=== PATIENT | female | born 1965 | race Caucasian/White ===

== ENCOUNTER 2017-05-21 17:09 | Inpatient (IN) | payer OTHER ==
[~2017-05-21] VITALS: Ht 162.6 cm; Wt 81.6 kg
[2017-05-21] MEDS ORDERED: DICYCLOMINE HCL 20 MG TABLET PO PRN (20:30)
[2017-05-21] MEDS ORDERED: MIRALAX 17 GM POWD.PACK PO PRN (20:30)
[2017-05-21] MEDS ORDERED: MAGNESIUM HYDROXIDE 30 ML LIQUID UDC PO PRN (20:30)
[2017-05-21] MEDS ORDERED: LOPERAMIDE HCL 2 MG CAPSULE PO PRN ×2 (20:30)
[2017-05-21] MEDS ORDERED: LORAZEPAM 2 MG/1 ML VIAL IM PRN (20:30)
[2017-05-21] MEDS ORDERED: MAG HYDROX/AL HYDROX/SIMETH 30 ML LIQUID UDC PO PRN (20:30)
[2017-05-21] MEDS ORDERED: THIAMINE HCL 200 MG/2 ML VIAL IM ONE (20:30)
[2017-05-21] MEDS ORDERED: LORAZEPAM 1 MG TABLET PO PRN (20:30)
[2017-05-21] MEDS ORDERED: CALCIUM CARBONATE 500 MG TAB.CHEW PO PRN (20:30)
--- NOTE | 2017-05-21 20:36 | NUR ---
Pre-admission assessment Patient is a 51-year old, male, seen at intake, AAOx4, with anxiety noted. Patient appears flushed, disheveled and emotional. Patient is crying and expressing feelings of guilt and remorse. Discussed with patient admission policies of the unit. Patient is coherent and able to respond to questions appropriately. Patient reported that she is from [place] and was dropped off by her son. Pt is ambulatory with steady gait. Pt reports drinking Tequila 375 ml every night for the past 5 years. Last drink was 05/20/2017 around 10 pm. Patient also reports smoking Cannabis "a couple of puffs with a pipe" daily x 30 years. Last smoke was today in the afternoon. Vital signs taken and as follows: SR=868/93, P=106, O2 sat on RA=97%, RR=20, T=98.3. Pt verbalized instructions and teachings regarding disposal of narcotic and other controlled home meds, unit protocols such as taking of vital signs Q4H and handling and disposal of contraband.
--- NOTE | 2017-05-21 21:00 | NUR ---
Admission Notes Px is 51 y/o female who is being admitted for medically supervised withdrawal from ETOH. Px is currently experiencing mild to moderate withdrawal sxs. Px appears clean. Px is anxious and depressed. Px was crying during interview. Px is A&Ox4. Px has good eye contact. Px states that she is irritable, has problems sleeping, and easily angered if she is not drinking. Px denies hx of withdrawal-induced seizure. Px states current substance use as follows: 1. ETOH- Tequila 375 ml daily for 5 years. Px last drink was last night 05/20/2017. Px began drinking 25 years ago. 2. Marijuana- few puffs daily in pipe for 30 years Px states that she is seeking tx today because her drinking is already affecting her family especially her . Px verbalized "Drinking turned myself to a person that is not me. I had a fight with my last night. I don't want a divorce". Px is first time in detox. Px stated that she had not drink for a day but on the next day, she will drink again. Px has no solid period of sobriety. CIWA 13 at the moment. Px states "I really need a treatment, I need to stop drinking. Last night, I had a fight with my . I just want to live a normal life". Px stated "My is my support system". Px denies any suicidal ideation or homicidal ideation hx. VS are as follow BP= 135/95, TX= 102, O2sat= 97%, RR=18. No pain complaints at the moment. respirations are even and unlabored. Lung whelan are clear. Bowel sounds are active. Skin is intact. Px is following regular diet at home. Px has allergies on Codeine. Px stands 5'4" and weighs 180 lbs. Px smokes 1 pack of cigarettes daily. Px wishes to be in FULL [facility]. Px's primary doctor is Dr. De Souza. Px PMHx includes SC 7 years ago due to menorrhagia as stated. Gall bladder surgical removal, total hysterectomy, anxiety and depression. Px was educated about the plan of care including, detox, group therapy, individual therapy, and D/C.
[2017-05-21 21:03] LABS: BASOPHILS # (AUTO) 0.1 K/uL (0.0-8.0); BASOPHILS % (AUTO) 0.9 % (0.0-2.0); EOSINOPHILS # (AUTO) 0.1 K/uL (0.0-0.7); EOSINOPHILS % (AUTO) 0.5 % (0.0-7.0); ETHANOL < 3 MG/DL (0-0); HEMATOCRIT 44.4 % (31.2-41.9); HEMOGLOBIN 15.1 g/dL (10.9-14.3); LYMPHOCYTES % (AUTO) 22.4 % (20.5-51.5); MEAN CORPUSCULAR HEMOGLOBIN 34.2 uug (24.7-32.8); MEAN CORPUSCULAR HGB CONC 34 g/dL (32.3-35.6); MEAN CORPUSCULAR VOLUME 100.4 fL (75.5-95.3); MONOCYTES # (AUTO) 1.1 K/uL (2.0-10.0); MONOCYTES % (AUTO) 8.3 % (0.0-11.0); NEUTROPHILS # (AUTO) 9.1 K/uL (1.8-8.9); NEUTROPHILS % (AUTO) 67.9 % (38.5-71.5); PLATELET COUNT (AUTO) 382 K/uL (179-408); RED BLOOD CELL COUNT(AUTO) 4.42 MIL/uL (3.63-4.92); WHITE BLOOD COUNT (AUTO) 13.4 K/uL (3.8-11.8)
[2017-05-21 21:07] LABS: ALANINE AMINOTRANSFERASE 91 U/L (14-59); ALKALINE PHOSPHATASE 112 U/L (50-136); AMYLASE 25 U/L (25-115); ASPARTATE AMINOTRANSFERASE 43 U/L (15-37); BILIRUBIN,TOTAL 0.8 mg/dL (0.2-1.0); CARBON DIOXIDE 25 mmol/L (21-32); CHLORIDE 100 mmol/L (98-107); CREATININE 0.9 mg/dL (0.6-1.3); GLUCOSE 176 mg/dL (74-106); MAGNESIUM 1.7 mg/dL (1.8-2.4); POTASSIUM 3.9 mmol/L (3.5-5.1); TOTAL PROTEIN, SERUM 8.5 g/dL (6.4-8.2); UREA NITROGEN, BLOOD 13 mg/dL (7-18)
[2017-05-21 21:09] LABS: *URINE HCG, QUAL NEGATIVE (NEGATIVE)
[2017-05-21 21:16] LABS: *AMPHETAMINE, URINE NEGATIVE (NEGATIVE); *BARBITURATE, URINE NEGATIVE (NEGATIVE); *CANNABINOID, URINE POSITIVE (NEGATIVE); *COCCAINE, URINE NEGATIVE (NEGATIVE); *OPIATE, URINE NEGATIVE (NEGATIVE); *PHENCYCLIDINE SCREEN,URINE NEGATIVE (NEGATIVE)
[2017-05-21 21:17] LABS: THYROID STIMULATING HORMONE 1.808 mIU/mL (0.358-3.740)
[2017-05-21] MEDS: LORAZEPAM 1 MG TABLET PO PRN (21:50)
--- NOTE | 2017-05-21 21:50 | NUR ---
PRN meds Px was given Ativan 1 mg/tab, 2 tabs PO for CIWA 13. TUMS chew 500 mg given PO for upset stomach and Zofran 4 mg/tab, 1 tab SL for nausea. We'll continue to monitor.
[2017-05-21] MEDS: ONDANSETRON ODT 4 MG TAB.RAPDIS SL PRN (21:53)
--- NOTE | 2017-05-21 22:30 | NUR ---
Reassessment of Nausea Px stated that her nausea improved after 30 mins of taking Zofran 4 mg SL.
--- NOTE | 2017-05-21 22:50 | NUR ---
Reassessment of stomach upset Px stated that her stomach upset improved after 1 hour of taking TUMS chew tab 500 mg.
[2017-05-22] VITALS: BP 119/77
[2017-05-22 04:00] VITALS: BP 121/76
--- NOTE | 2017-05-22 07:21 | NUR ---
End of Shift Nurse During the shift at 2150, Px received Ativan 2 mg PO for CIWA 13, TUMS chew 500 mg for stomach upset and Zofran 4 mg SL for nausea. They were effective. Px's CIWA improved to 9. Nausea and stomach upset improved. px's oral intake is 850 ml, voided 2x, No BM. Px slept for 7 hours. At 0630, px is awake on bed in long sitting position. Bed on lowest position, side rails up 2x, and call light within reach. We'll continue to monitor. Px endorsed to AM shift nurse.
[2017-05-22 08:00] VITALS: BP 132/92
--- NOTE | 2017-05-22 08:15 | NUR ---
START OF SHIFT: RECEIVED PT A/O X 4. FLUSHED FACE AND POOR EYE CONTACT NOTED. SHE PRESENTS WITH ANXIOUS MOOD AND CONGRUENT AFFECT. SHE IS TEARFUL.BODY AND HAND TREMORS NOTED. SHE REPORTS FEELING SHAKY ALL OVER WITH ANXIETY ,MILD NAUSEA , SWEATS,IRRITABILITY AND SENSITIVITY TO LIGHT AND SOUND. ATIVAN TAPER IN PROGRESS TO MANAGE S/S OF W/D. ROSELINE Gayle MD MADE AWARE. ENCOUREAGED INCREASED FLUIDS AND REST TODAY. PPD REFUSED. WILL CONTINUE TO MONITOR AND MANAGE S/S OF W/D. Addendum: 05/22/17 at 1114 by ALMAS POLO RN PRN ATIVAN 2 MG PO GIVEN FOR ROSELINE 18 MADE AWARE OF SCORE
[2017-05-22] MEDS: FOLIC ACID 1 MG TABLET PO SCH (08:54)
[2017-05-22] MEDS: LORAZEPAM 1 MG TABLET PO SCH ×4 (08:54→21:00)
[2017-05-22] MEDS: THIAMINE HCL 100 MG TABLET PO SCH (08:54)
[2017-05-22] MEDS: LORAZEPAM 1 MG TABLET PO PRN ×2 (08:54→10:52)
[2017-05-22] MEDS: MULTIVITAMINS,THERAPEUTIC TABLET PO SCH (08:54)
[2017-05-22] MEDS ORDERED: TUBERCULIN,PURIF.PROT.DERIV. 5 TU/0.1 ML TEST ID ONE (09:00)
--- NOTE | 2017-05-22 09:15 | NUR ---
CIWA NOW 16. ATIVAN PA ONLY MILDLY EFFECTIVE.
[2017-05-22] MEDS ORDERED: MICO45CR15 VG (10:24)
[2017-05-22] MEDS ORDERED: OMEP20CA10 PO (10:24)
[2017-05-22] MEDS ORDERED: VARE1TAB21 PO (10:24)
--- NOTE | 2017-05-22 10:50 | NUR ---
PRN ATIVAN 2 MG PO GIVEN FOR CIWA 21. SHE REPORTS NAUSEA,STOMACH UPSET,SHAKES,IRRITABILITY,DEPRESSION AND SADNESS. SHE IS SOBBING AND STATES SHE FEELS HORRIBLE. MADE AWARE. WILL MONITOR EFFECTIVENESS.
[2017-05-22] MEDS: ONDANSETRON ODT 4 MG TAB.RAPDIS SL PRN (10:53)
--- NOTE | 2017-05-22 10:55 | NUR ---
PRN BENTYL PO AND ZOFRAN ODT ALSO GIVEN FOR REPORTED STOMACH UPSET AND NAUSEA.
[2017-05-22] MEDS ORDERED: NICOTINE 14 MG/24HR PATCH TD PRN (11:00)
[2017-05-22] MEDS ORDERED: NICOTINE POLACRILEX 4 MG GUM-PK OF TEN BC PRN (11:00)
[2017-05-22] MEDS ORDERED: MAGNESIUM OXIDE 400 MG TABLET PO ONE (11:00)
--- NOTE | 2017-05-22 11:50 | NUR ---
PRN BENTYL AND PRN ZOFRAN EFFECTIVE. PT STATES HER NAUSEA IS GONE AND STOMACH FEELS BETTER.
[2017-05-22 12:00] VITALS: BP 127/98
[2017-05-22] MEDS: OMEPRAZOLE 20 MG PO SCH (12:07)
[2017-05-22] MEDS: IBUPROFEN 400 MG TABLET PO PRN (13:13)
--- NOTE | 2017-05-22 13:15 | NUR ---
PRN MOTRIN PO GIVEN FOR REPORTED H/A 8/10 ON PAIN SCALE. WILL MONITOR EFFECTIVENESS. PT CONTINUES ON BED REST AND INCREASED FLUIDS ENCOURAGED.
--- NOTE | 2017-05-22 14:15 | NUR ---
PT STATES H/A IS 2/10. MOTRIN MOSTLY EFFECTIVE.
[2017-05-22 16:00] VITALS: BP 134/88
--- NOTE | 2017-05-22 18:49 | NUR ---
END OF SHIFT: PT STARTED ATIVAN TAPER TODAY FOR ETOH W/D. SHE WAS FLUSHED THIS AM WITH BODY AND HAND TREMORS ,SWEATS, ANXIETY,DEPRESSION AND RESTLESSNESS. MORNING CIWA 18. SHE WAS GIVEN PRN ATIVAN X 2. WHICH WAS EFFECTIVE. SHE WAS ALSO GIVEN PRN BENTYL AND PRN ZOFRAN ALONG WITH PRN MOTRIN FOR H/A. LAST CIWA 12.SHE WAS COMPLIANT WITH INCREASED FLUIDS AND BED REST. SHE REFUSED PPD. BED LOW AND LOCKED. CALL MIRANDA IN REACH. SHE IS TOLERATING FOOD AND EATING 50 % OF MEALS. WILL PASS SHIFT REPORT TO ONCOMING NIGHT NURSE.
--- NOTE | 2017-05-22 19:20 | NUR ---
Start of Shift Patient Received. Patient is noted in bed sleeping. Breathing even and non labored. Per endorsement, Patient continues on a modified Ativan taper. Per endorsement, patient was given PRN Ativan 2mg x2, Zofran, Bentyl, and Motrin for increased signs and symptoms of withdrawal with medications noted to be effective. Patient noted to refused PPD with MD aware. Last noted CIWA 12. All needs attended to promptly. Will continue plan of care as ordered.
--- NOTE | 2017-05-22 20:30 | NUR ---
CIWA Deferred Patient is in bed sleeping. Breathing even and non labored. No restlessness or discomfort noted. Patient is arousable to name. When asked patient if she wanted her medications patient "no I'm fine." Patient then noted to go back to sleep with no complications noted. Unable to complete CIWA. Will continue to monitor.
[2017-05-22 21:01] VITALS: BP 120/73
[2017-05-23 00:30] VITALS: BP 132/87
[2017-05-23 04:15] VITALS: BP 131/85
[2017-05-23] MEDS: OMEPRAZOLE 20 MG PO SCH (06:27)
--- NOTE | 2017-05-23 07:02 | NUR ---
End of Shift Patient is in room, awake, alert and verbally responsive. Breathing even and non labored. Patient is noted to shower with no complications noted. Patient continues on a modified Ativan taper. Patient was noted to sleep through medication administration. No PRN medications administered throughout shift. Patient slept a total of 9 hours. Last noted CIWA 5 at 0500 when patient went out for smoking break. All needs attended to promptly. Will endorse to continue plan of care as ordered.
[2017-05-23 08:00] VITALS: BP 136/94
--- NOTE | 2017-05-23 08:20 | NUR ---
START OF SHIFT: RECEIVED PT A/O X 4. SHE PRESENTS WITH SAD MOOD AND WORRIED AFFECT. SHE IS CRYING.BODY AND HAND TREMORS NOTED. SHE REPORTS FEELING ANXIETY ,MILD NAUSEA , SWEATS, IRRITABILITY AND DEPRESSION.ATIVAN TAPER IN PROGRESS TO MANAGE S/S OF W/D. CIWA 23. PT STARTED VOMITING IMMEDIATELY AFTER MED ADMINISTRATION. PRN ZOFRAN IM ADMINISTERED TO L DELTOID MD MADE AWARE. WILL MONITOR EFFECTIVENESS OF ZOFRAN PRIOR TO ADMINISTERING THE PRN DOSE OF ATIVAN TO REDUCE S/S OF W/D. SHE ALSO REPORTS H/A 8/10 ON PAIN SCALE. WILL ADMINISTER PRN TYLENOL FOR H/A WILL CONTINUE TO MONITOR AND MANAGE S/S OF W/D. ENCOURAGED REST TODAY. WILL CONTINUE TO MANAGE S/S OF W/D AND PROVIDE SAFE AND SUPPORTIVE ENVIRONMENT.
[2017-05-23] MEDS: FOLIC ACID 1 MG TABLET PO SCH (08:38)
[2017-05-23] MEDS: IBUPROFEN 400 MG TABLET PO PRN ×2 (08:38→20:40)
[2017-05-23] MEDS: LORAZEPAM 1 MG TABLET PO SCH ×3 (08:38→20:40)
[2017-05-23] MEDS: MULTIVITAMINS,THERAPEUTIC TABLET PO SCH (08:38)
[2017-05-23] MEDS: THIAMINE HCL 100 MG TABLET PO SCH (08:38)
[2017-05-23] MEDS: ONDANSETRON 4 MG/2 ML VIAL IM PRN (08:47)
[2017-05-23] MEDS ORDERED: LORAZEPAM 1 MG TABLET PO ONE (10:15)
[2017-05-23] MEDS: ACETAMINOPHEN 325 MG TABLET PO PRN (10:16)
[2017-05-23 10:39] LABS: BASOPHILS # (AUTO) 0.1 K/uL (0.0-8.0); EOSINOPHILS # (AUTO) 0.1 K/uL (0.0-0.7); EOSINOPHILS % (AUTO) 1.4 % (0.0-7.0); HEMOGLOBIN 13.5 g/dL (10.9-14.3); LYMPHOCYTES # (AUTO) 2.7 K/uL (20.0-40.0); LYMPHOCYTES % (AUTO) 25.7 % (20.5-51.5); MEAN CORPUSCULAR HEMOGLOBIN 34.3 uug (24.7-32.8); MEAN CORPUSCULAR HGB CONC 34 g/dL (32.3-35.6); MEAN CORPUSCULAR VOLUME 101.3 fL (75.5-95.3); MONOCYTES % (AUTO) 9.3 % (0.0-11.0); NEUTROPHILS # (AUTO) 6.5 K/uL (1.8-8.9); NEUTROPHILS % (AUTO) 62.6 % (38.5-71.5); PLATELET COUNT (AUTO) 303 K/uL (179-408); RED BLOOD CELL COUNT(AUTO) 3.93 MIL/uL (3.63-4.92); WHITE BLOOD COUNT (AUTO) 10.5 K/uL (3.8-11.8)
[2017-05-23 10:54] LABS: HEMATOCRIT 39.8 % (31.2-41.9)
[2017-05-23 11:11] LABS: BILIRUBIN,DIRECT 0.1 mg/dL (0.0-0.2); BILIRUBIN,TOTAL 0.2 mg/dL (0.2-1.0); CREATININE 0.9 mg/dL (0.6-1.3); MAGNESIUM 1.7 mg/dL (1.8-2.4); PHOSPHOROUS 3.5 mg/dL (2.5-4.9); TOTAL PROTEIN, SERUM 7.1 g/dL (6.4-8.2)
[2017-05-23] MEDS ORDERED: IV 1/2NS 1000 ML 1,000 ML IV PRN (11:45)
[2017-05-23] MEDS ORDERED: LORAZEPAM 1 MG TABLET PO PRN ×2 (11:45)
[2017-05-23 12:00] VITALS: BP 112/74
[2017-05-23] MEDS ORDERED: MAGNESIUM OXIDE 400 MG TABLET PO ONE (12:00)
[2017-05-23] MEDS ORDERED: PANTOPRAZOLE SODIUM 40 MG VIAL IV ONE (12:00)
[2017-05-23 12:26] LABS: HEPATITIS B SURFACE AG Negative (Negative)
--- NOTE | 2017-05-23 12:44 | NUR ---
1/2 NS IV STARTED. 22 G TO R FA. SITE PATENT AND INTACT. ORDERED 1 BAG FOR HYDRATION. WILL CONTINUE TO MONITOR.
--- NOTE | 2017-05-23 15:58 | NUR ---
PT ACCIDENTLY PULLED IV OUT. MD STATES RESUME IV FLUIDS IF POOR ORAL INTAKE.
[2017-05-23 16:00] VITALS: BP 126/86
--- NOTE | 2017-05-23 18:58 | NUR ---
END OF SHIFT: PT CONTINUES ON ATIVAN TAPER FOR ETOH W/D WHICH INCLUDE TREMORS ,SWEATS, ANXIETY,DEPRESSION AND RESTLESSNESS. MORNING CIWA 23. SHE IS DISHEVELED WITH POOR HYGIENE. SHE STARTED VOMITING IMMEDIATELY AFTER AM MED ADMINISTRATION. IM ZOFRAN PRN GIVEN AND EFFECTIVE. READMINISTERED ATIVAN. PRN TYLENOL GIVEN FOR H/A 8/10 ON SCALE WHICH WAS EFFECTIVE. PAIN 3/10 LAST CIWA 15 . IV STARTED TO R FA BUT PT ACCIDENTLY PULLED IT OUT AFTER A COUPLE OF HOURS. MD STATES TO RESUME IV FLUIDS FOR POOR INTAKE. PT ON BEDREST TODAY. BED LOW AND LOCKED. CALL MIRANDA IN REACH. SHE IS TOLERATING FOOD AND EATING 50 % OF MEALS AT THIS TIME. WILL PASS SHIFT REPORT TO ONCOMING NIGHT NURSE.
--- NOTE | 2017-05-23 19:30 | NUR ---
START OF SHIFT Pt is a 51 y/o female admitted on 05/21/17 for ETOH withdrawal. Pt is on a 5 day Ativan taper that started on 05/22/17 and PRN Ativan available, tolerating taper well. Per day shift nurse, last CIWA 15 and PRN Zofran inj and Tylenol administered. Pt has IVF started during day shift, IV accidentally got pulled out a few hours after, to re reinserted if pt has poor intake. Upon assessment pt presents with anxiety, agitation, irritability, sweats, nausea without vomiting, tremors, headache, flushed skin, restlessness, difficulty falling asleep, flat affect, increased BP and HR, unkempt room and is tearful. Pt has not had an episode of vomiting since the morning. Pt able to tolerate fluids.
[2017-05-23 20:00] VITALS: BP_SYST 139; BP_SYST 150; BP_DIAS 88
[2017-05-23] MEDS: diphenhydrAMINE 50 MG CAPSULE PO PRN (20:40)
[2017-05-23] MEDS: ONDANSETRON ODT 4 MG TAB.RAPDIS SL PRN (20:40)
--- NOTE | 2017-05-23 20:40 | NUR ---
PRN ZOFRAN ODT, MOTRIN AND BENADRYL ADMINISTRATION Pt reports nausea without vomiting, headache 5/10 and requests sleep aid. Safety measures in place. Call light within reach. Will continue to monitor.
--- NOTE | 2017-05-23 21:10 | NUR ---
RICK العلي ODT REASSESSMENT Pt reports nausea has ceased, medication effective. Safety measures in place. Call light within reach. Will continue to monitor.
--- NOTE | 2017-05-23 21:40 | NUR ---
PRN MOTRIN AND BENADRYL REASSESSMENT Pt reports headache is now tolerable, still awake but presents with fatigue. Safety measures in place. Call light within reach. Will continue to monitor.
--- NOTE | 2017-05-24 | NUR ---
CIWA DEFERRED AND VITALS REFUSED. Pt laying in bed with eyes closed, CIWA deferred, to be assessed when pt is awake per orders. Vitals refused. Respirations even and unlabored. Safety measures in place. Call light within reach. Will continue to monitor.
--- NOTE | 2017-05-24 04:00 | NUR ---
CIWA DEFERRED AND VITALS REFUSED Pt laying in bed with eyes closed, CIWA deferred, to be assessed when pt is awake per orders. Vitals refused. Respirations even and unlabored. Safety measures in place. Call light within reach. Will continue to monitor.
[2017-05-24 06:47] LABS: BILIRUBIN,DIRECT 0.1 mg/dL (0.0-0.2); BILIRUBIN,TOTAL 0.3 mg/dL (0.2-1.0); CREATININE 0.8 mg/dL (0.6-1.3); MAGNESIUM 1.8 mg/dL (1.8-2.4); PHOSPHOROUS 4.1 mg/dL (2.5-4.9); POTASSIUM 4.6 mmol/L (3.5-5.1)
--- NOTE | 2017-05-24 07:16 | NUR ---
END OF SHIFT Pt is a 51 y/o female admitted on 05/21/17 for ETOH withdrawal. Pt is on a 5 day Ativan taper that started on 05/22/17 and PRN Ativan available, tolerating taper well. Pt presented with anxiety, agitation, irritability, sweats, nausea without vomiting, tremors, headache, flushed skin, restlessness, difficulty falling asleep, flat affect, increased BP and HR, unkempt room and was tearful. Pt able to tolerate fluids and food during shift. Scheduled medications and PRN Motrin, Zofran odt and Benadryl administered, effective in S/S of withdrawal as verbalized by pt. Last CIWA 19. Pt slept 8 hours. Intake 250 ml, void x 2, stool x 0. Safety measures in place. Call light within reach. Pts needs have been met. Endorsed to day shift nurse.
[2017-05-24] MEDS: PATIENT MAY USE OWN MED- MD OK PO SCH (07:22)
--- NOTE | 2017-05-24 07:40 | NUR ---
START OF SHIFT PT IS A 51 Y/O M ADMITTED ON 05/21/17 FOR ETOH W/D. PT IS ON A 5 DAY ATIVAN TAPER STARTED ON 05/22/17 AND TOLERATING WELL. PT IS A/OX4, RESPIRATIONS EVEN AND UNLABORED. PT PRESENTS ANXIETY, AGITATION, IRRITABILITY, RESTLESSNESS, DIAPHORESIS, FLUSHING, NAUSEA. TREMORS NOTED. LAST CIWA 19 @1999. PT APPEARS TO BE HIGHLY EMOTIONAL AND STATES, "I AM NOT DOING SO WELL." ENCOURAGED PT TO PARTICIPATE IN GROUPS/ACTIVITIES TO PROMOTE COPING SKILLS. SIDE RAILS UPX2, BED IN LOW POSITION, CALL LIGHT WITHIN REACH. SAFETY MEASURES IN PLACE. WILL CONTINUE TO MONITOR.
[2017-05-24 08:00] VITALS: BP 138/95
[2017-05-24] MEDS ORDERED: LORAZEPAM 1 MG TABLET PO SCH ×3 (09:00→21:00)
[2017-05-24] MEDS: FOLIC ACID 1 MG TABLET PO SCH (09:09)
[2017-05-24] MEDS: MULTIVITAMINS,THERAPEUTIC TABLET PO SCH (09:09)
[2017-05-24] MEDS: THIAMINE HCL 100 MG TABLET PO SCH (09:09)
[2017-05-24] MEDS: ONDANSETRON ODT 4 MG TAB.RAPDIS SL PRN (09:21)
--- NOTE | 2017-05-24 09:21 | NUR ---
PRN PT C/O NAUSEA, STATED, "I'VE BEEN FEELING SICK ALL THE TIME." ZOFRAN 4MG SL PRN GIVEN. WILL MONITOR FOR EFFECTIVENESS.
--- NOTE | 2017-05-24 10:21 | NUR ---
REASSESSMENT PT REPORTED NAUSEA HAS CEASED DUE TO ZOFRAN. WILL CONTINUE TO MONITOR.
[2017-05-24] MEDS ORDERED: MAGNESIUM OXIDE 400 MG TABLET PO ONE (10:30)
--- NOTE | 2017-05-24 10:30 | NUR ---
Therapist prompted client about group times. Client stated she would attend all groups.
[2017-05-24 12:00] VITALS: BP 120/81
[2017-05-24] MEDS: LORAZEPAM 1 MG TABLET PO SCH ×2 (12:12→17:00)
[2017-05-24 16:00] VITALS: BP 138/94
--- NOTE | 2017-05-24 19:26 | NUR ---
END OF SHIFT PT'S LAST CIWA IS 14 @1600. PT HAS BEEN HIGHLY EMOTIONAL AND AGITATED, DURING SHIFT. PT REPORTS FEELING VERY DEPRESSED AND IS FEELING REMORSE ABOUT HER ACTIONS. PT STATED WHILE CRYING, "I FEEL HORRIBLE ABOUT THE THINGS I'VE DONE TO MY . I NEED TO TALK TO HIM. I MISS HIM SO MUCH." PT AROUND 1300, PT CAME TO THE NURSING STATION AND WAS UPSET AND FRUSTRATED ABOUT WAITING SO LONG TO MAKE A PHONE CALL TO HER . PT STATED, "I AM SICK AND TIRED OF GETTING THE RUN AROUND. YOU GUYS ARE DOING THIS ON PURPOSE. WELL THEN, FUCK YOU GUYS." REDIRECTED PT AND ENCOURAGED PT TO VERBALIZED HER FEELINGS WITHOUT BEING RUDE TO STAFF. PHONE CALL WAS MADE. ZOFRAN PRN WAS GIVEN DURING SHIFT. PT ATE 100% OF MEALS. SAFETY MEASURES IN PLACE. WILL GIVE PERTINENT INFO TO BACKFILLER NURSE.
[2017-05-24 20:00] VITALS: BP 127/87
--- NOTE | 2017-05-24 20:00 | NUR ---
START OF SHIFT NOTE RECEIVED REPORT FROM DAY SHIFT NURSE. PATIENT IS A 51 YEAR OLD FEMALE ADMITTED FOR ETOH WITHDRAWAL. PATIENT IS ON HER 3RD DAY OF HER 5 DAY ATIVAN TAPER. PATIENT EMOTIONAL DURING THE DAY. PATIENT WAS GIVEN PRN ZOFRAN AND EXTRA ONE TIME ATIVAN. LAST CIWA 14. RECEIVED PATIENT IN THE ROOM. RESPIRATION EVEN AND UNLABORED. PATIENT'S ROOM DIRTY, GARBAGE AROUND ROOM, CLOTHES EVERYWHERE, SAD, ANXIOUS, FLUSHED FACE AND FATIGUE. ENCOURAGE FLUIDS. SAFETY MEASURES IN PLACE. CALL LIGHT IN REACH. WILL CONTINUE TO MONITOR
[2017-05-24] MEDS: GABAPENTIN 300 MG CAPSULE PO SCH (20:28)
[2017-05-25] VITALS: BP 137/88
--- NOTE | 2017-05-25 | NUR ---
ROSELINE DEFERRED PATIENT IN BED WITH EYES CLOSED. RESPIRATION EVEN AND UNLABORED. SAFETY MEASURES IN PLACE. CALL LIGHT IN REACH. WILL CONTINUE TO MONITOR. Addendum: 05/25/17 at 0733 by ALIVIA GRANT LVN REFUSED VS.
--- NOTE | 2017-05-25 04:00 | NUR ---
CIWA DEFERRED PATIENT IN BED WITH EYES CLOSED. REFUSED VS. RESPIRATION EVEN AND UNLABORED. SAFETY MEASURES IN PLACE. CALL LIGHT IN REACH. WILL CONTINUE TO MONITOR.
[2017-05-25] MEDS: PATIENT MAY USE OWN MED- MD OK PO SCH (06:44)
--- NOTE | 2017-05-25 07:27 | NUR ---
END OF SHIFT NOTE MONITORED THROUGHOUT SHIFT. MEDICATION GIVEN ORDERED, TOLERATED WELL AND NO ADVERSE REACTION. PATIENT IN THE ROOM MOST OF THE SHIFT, SLEEPING. PATIENT DID NOT REQUIRE ANY PRN MEDICATION. PATIENT COMPLIANT WITH MEDICATION. PATIENT SLEPT 10 HOURS. FLUID INTAKE 500 ML. VOIDED X 2.NO BM. LAST CIWA 6.
--- NOTE | 2017-05-25 07:43 | NUR ---
START OF SHIFT PT IS A 51 Y/O M ADMITTED ON 05/21/17 FOR ETOH W/D. PT IS ON A 5 DAY ATIVAN TAPER STARTED ON 05/22/17 AND TOLERATING WELL. PT IS A/OX4, RESPIRATIONS EVEN AND UNLABORED. PT PRESENTS DEPRESSION, ANXIETY, AGITATION, IRRITABILITY, RESTLESSNESS, DIAPHORESIS, FLUSHING, NAUSEA. TREMORS NOTED. LAST CIWA 6 @1999. PT APPEARS TO BE HIGHLY EMOTIONAL AND STATED SHE WOKE UP IN TEARS. ENCOURAGED PT TO VERBALIZED FEELINGS AND PARTICIPATE IN GROUPS/ACTIVITIES TO PROMOTE COPING SKILLS. SIDE RAILS UPX2, BED IN LOW POSITION, CALL LIGHT WITHIN REACH. SAFETY MEASURES IN PLACE. WILL CONTINUE TO MONITOR.
[2017-05-25 08:00] VITALS: BP 141/89
--- NOTE | 2017-05-25 08:24 | NUR ---
PRN IBUPROFEN 600 MG PO PRN GIVEN FOR HEADACHE 09/07. WILL MONITOR FOR EFFECTIVENESS.
[2017-05-25] MEDS ORDERED: LORAZEPAM 1 MG TABLET PO SCH ×3 (09:00→21:00)
[2017-05-25] MEDS: THIAMINE HCL 100 MG TABLET PO SCH (09:11)
[2017-05-25] MEDS: MULTIVITAMINS,THERAPEUTIC TABLET PO SCH (09:11)
[2017-05-25] MEDS: ESCITALOPRAM OXALATE 10 MG TABLET PO SCH (09:11)
[2017-05-25] MEDS: GABAPENTIN 300 MG CAPSULE PO SCH ×3 (09:11→20:33)
[2017-05-25] MEDS: FOLIC ACID 1 MG TABLET PO SCH (09:11)
--- NOTE | 2017-05-25 09:24 | NUR ---
REASSESSMENT PT REPORTED MED EFFECTIVE, HEADACHE 2/10. WILL CONTINUE TO MONITOR.
[2017-05-25] MEDS: IBUPROFEN 400 MG TABLET PO PRN (10:08)
[2017-05-25] MEDS: ACETAMINOPHEN 325 MG TABLET PO PRN (11:19)
[2017-05-25] MEDS: ONDANSETRON 4 MG/2 ML VIAL IM PRN (11:28)
[2017-05-25] MEDS ORDERED: DOCUSATE SODIUM 250 MG CAPSULE PO PRN (11:30)
[2017-05-25] MEDS: CLONIDINE HCL 0.1 MG TABLET PO PRN (11:34)
--- NOTE | 2017-05-25 11:35 | NUR ---
PRN PT WALKED OUT IN THE MIDDLE OF GROUP, PT STATES DUE TO ANXIETY, STATED, "EVERYONE WAS SITTING TOO CLOSE TO ME AND IT GAVE ME HORRIBLE ANXIETY, I COULDN'T SIT THERE ANYMORE." PT CAME INTO HER ROOM CRYING, VOMITED X1, PT ALSO C/O HAVING LEG PAIN. ZOFRAN 4MG IM INJ PRN, TYLENOL 650 MG PO PRN AND CLONIDINE 0.1 MG PO PRN GIVEN. BP 141/91 HR 111. WILL MONITOR FOR EFFECTIVENESS.
[2017-05-25 12:00] VITALS: BP 132/85
--- NOTE | 2017-05-25 12:35 | NUR ---
REASSESSMENT PT REPORTED MED EFFECTIVE AND FEELS BETTER. PT APPEARS CALM BUT DEPRESSED. PT STATES SHE WISHES TO SLEEP AND REFUSED VS TO BE RETAKEN. WILL CONTINUE TO MONITOR AND PROVIDE SUPPORT.
[2017-05-25 16:00] VITALS: BP 132/77
--- NOTE | 2017-05-25 19:21 | NUR ---
END OF SHIFT PT'S LAST CIWA 13 @1600. PT ATE 100% OF MEALS. DURING GROUP, PT HAD AN ANXIETY ATTACK WAS ESCORTED BACK TO HER ROOM. CLONIDINE, MOTRIN, TYLENOL, AND ZOFRAN PRNS WERE GIVEN DURING SHIFT. PT HAS BEEN COMPLIANT WITH MED REGIMEN AND TX PLAN. SAFETY MEASURES IN PLACE. WILL GIVE ENDORSEMENT TO TUG BOAT ENGINEER NURSE.
[2017-05-25 20:00] VITALS: BP 120/81
--- NOTE | 2017-05-25 20:00 | NUR ---
START OF SHIFT NOTE RECEIVED REPORT FROM DAY SHIFT NURSE. PATIENT IS A 51 YEAR OLD FEMALE ADMITTED FOR ETOH WITHDRAWAL. PATIENT IS ON 4TH DAY OF HER 5 DAY ATIVAN TAPER, TOLERATED WELL AND NO ADVERSE REACTION. PATIENT WAS EMOTIONAL DURING THE DAY AND HAD ANXIETY ATTACK DURING GROUP . PATIENT WAS GIVEN PRN ZOFRAN, CLONIDINE, TYLENOL FOR LEG PAIN AND MOTRIN FOR HEADACHE. PATIENT C/O CONSTIPATION BUT REFUSING MIRALAX AND MOM. NEW ORDER OF COLACE. LAST COWS 13 AND CIWA 13. RECEIVED PATIENT IN THE ROOM, WATCHING. PATIENT STATES SHE'S ANXIOUS BUT STATES SHE'S GETTING BETTER. PATIENT WITH FLAT AFFECT, SAD. FLUSHED FACE, COLD AND HOT SWEATS AND FINE TREMORS. ROOM DIRTY, GARBAGE AROUND ROOM AND CLOTHES. ENCOURAGE FLUIDS. SAFETY MEASURES IN PLACE. CALL LIGHT IN REACH. WILL CONTINUE TO MONITOR
--- NOTE | 2017-05-25 20:20 | NUR ---
PRN BENADRYL ADMINISTRATION PATIENT REQUESTS FOR SLEEP AID. WILL MONITOR FOR EFFECTIVENESS
[2017-05-25] MEDS: diphenhydrAMINE 50 MG CAPSULE PO PRN (22:20)
--- NOTE | 2017-05-25 22:58 | NUR ---
PRN BENADRYL RE-ASSESSMENT/TRAZADONE ADMINISTRATION PATIENT STILL UNABLE TO SLEEP. ONE TIME TRAZADONE GIVEN. WILL MONITOR FOR EFFECTIVENESS
[2017-05-25] MEDS ORDERED: TRAZODONE 50 MG TABLET PO ONE (23:00)
--- NOTE | 2017-05-26 | NUR ---
CIRADHA DEFERRED/TRAZADONE RE-ASSESSMENT PATIENT IN BED WITH EYES CLOSED. RESPIRATION EVEN AND UNLABORED. VS REFUSED. SAFETY MEASURES IN PLACE. CALL LIGHT IN REACH. WILL CONTINUE TO MONITOR
--- NOTE | 2017-05-26 04:00 | NUR ---
CIWA DEFERRED PATIENT IN BED WITH EYES CLOSED. RESPIRATION EVEN AND UNLABORED. VS REFUSED. SAFETY MEASURES IN PLACE. CALL LIGHT IN REACH. WILL CONTINUE TO MONITOR
[2017-05-26] MEDS: PANTOPRAZOLE SODIUM 40 MG TABLET.DR PO SCH (06:48)
--- NOTE | 2017-05-26 07:16 | NUR ---
END OF SHIFT NOTE PATIENT SLEPT 7 HOURS. FLUID INTAKE 1,400 ML. VOIDED X 1. BM X 1. MONITORED THROUGHOUT SHIFT . CONTINUE PATIENT IS ATIVAN TAPER, TOLERATED WELL AND NO ADVERSE REACTION. PATIENT HAD DIFFICULTY FALLING ASLEEP. PRN BENADRYL GIVEN BUT INEFFECTIVE. ONE TIME TRAZADONE GIVEN AND EFFECTIVE. ENCOURAGE FLUIDS. SAFETY MEASURES IN PLACE. CALL LIGHT IN REACH. WILL CONTINUE TO MONITOR . LAST CIWA 7.
--- NOTE | 2017-05-26 07:46 | NUR ---
START OF SHIFT PT IS A 51 Y/O M ADMITTED ON 05/21/17 FOR ETOH W/D. PT IS ON A 5 DAY ATIVAN TAPER STARTED ON 05/22/17 AND TOLERATING WELL. PT IS A/OX4, RESPIRATIONS EVEN AND UNLABORED. PT PRESENTS DEPRESSION, ANXIETY, AGITATION, IRRITABILITY, RESTLESSNESS, DIAPHORESIS, FLUSHING, SLIGHT NAUSEA. PT APPEARS DEPRESSED, REPORTS FEELING EXTREMELY SAD AND REMORSEFUL ABOUT HER ETOH ABUSE AND HOW IT HAS EFFECTED HER LOVED ONES. TREMORS NOTED. LAST CIWA 7 PER ROLL TENDER NURSE. BENADRYL AND TRAZODONE X1 ORDER GIVEN ON SHIFT. ENCOURAGED PT TO VERBALIZED FEELINGS AND PARTICIPATE IN GROUPS/ACTIVITIES TO PROMOTE COPING SKILLS. SIDE RAILS UPX2, BED IN LOW POSITION, CALL LIGHT WITHIN REACH. SAFETY MEASURES IN PLACE. WILL CONTINUE TO MONITOR.
[2017-05-26 08:00] VITALS: BP 121/83
[2017-05-26] MEDS ORDERED: LORAZEPAM 1 MG TABLET PO SCH (09:00)
[2017-05-26] MEDS: THIAMINE HCL 100 MG TABLET PO SCH (09:46)
[2017-05-26] MEDS: MULTIVITAMINS,THERAPEUTIC TABLET PO SCH (09:46)
[2017-05-26] MEDS: IBUPROFEN 600 MG TABLET PO PRN (09:47)
[2017-05-26] MEDS: FOLIC ACID 1 MG TABLET PO SCH (09:47)
[2017-05-26] MEDS: LORAZEPAM 1 MG TABLET PO SCH ×3 (09:47→21:25)
[2017-05-26] MEDS: GABAPENTIN 300 MG CAPSULE PO SCH ×3 (09:47→21:24)
[2017-05-26] MEDS: ESCITALOPRAM OXALATE 10 MG TABLET PO SCH (09:47)
[2017-05-26 12:00] VITALS: BP_SYST 140; BP_SYST 150; BP_DIAS 91
[2017-05-26] MEDS ORDERED: AMLODIPINE 5 MG TABLET PO SCH (15:00)
[2017-05-26 16:30] VITALS: BP 127/86
[2017-05-26] MEDS: METFORMIN HCL 500 MG TABLET PO SCH (17:42)
--- NOTE | 2017-05-26 18:45 | NUR ---
END OF SHIFT PT LAST CIWA 10 @1600. PT DIET HAS BEEN CHANGED TO CONSISTENT CARB DIET AND MD ORDERED METFORMIN TO CONTROL BS. 1 TIME ORDER OF NORVASC HAS BEEN GIVEN. IBUPROFEN PRN WAS GIVEN FOR HEADACHE 09/07. PT ATE 50/50/100% OF MEALS TODAY. PT REPORTS FEELING BETTER TODAY EMOTIONALLY AND HER S/S IS IMPROVING. PT HAS PARTICIPATED AND ATTENDED GROUPS TODAY. SAFETY MEASURES IN PLACE. WILL GIVE ENDORSEMENT TO PEG DRIVER NURSE.
[2017-05-26] MEDS: CLONIDINE HCL 0.1 MG TABLET PO PRN (19:57)
[2017-05-26] MEDS: ACETAMINOPHEN 325 MG TABLET PO PRN (19:57)
--- NOTE | 2017-05-26 19:57 | NUR ---
START OF SHIFT NOTE/PRN CATAPRES AND TYLENOL ADMINISTRATION RECEIVED REPORT FROM DAY SHIFT NURSE. PATIENT IS A 51 YEAR OLD FEMALE ADMITTED FOR ETOH WITHDRAWAL. PATIENT IS ON 5TH DAY OF HER 5 DAY ATIVAN TAPER. PATIENT WAS GIVEN PRN MOTRIN AND ONE TIME NORVASC. NEW ORDER OF METFORMIN. LAST CI. RECEIVED PATIENT C/O HEADACHE. BP- 166/89 P-99. PATIENT STATES SHE'S ANXIOUS AND NOTED WITH BILATERAL HAND TREMOR . SAFETY MEASURES IN PLACE. CALL LIGHT IN REACH. WILL CONTINUE TO MONITOR.
[2017-05-26 20:00] VITALS: BP 166/89
[2017-05-26 20:57] VITALS: BP 136/79
--- NOTE | 2017-05-26 20:57 | NUR ---
PRN TYLENOL AND CATAPRES RE-ASSESSMENT PATIENT STATES TYLENOL HELPFUL AND EFFECTIVE. NO HEADACHE AT THIS TIME. BP-RECHECKED BP-138/823 P-97
[2017-05-26] MEDS: diphenhydrAMINE 50 MG CAPSULE PO PRN (22:27)
--- NOTE | 2017-05-26 22:27 | NUR ---
PRN BENADRYL ADMINISTRATION PATIENT REQUESTS FOR SLEEP AID. WILL MONITOR FOR EFFECTIVENESS
--- NOTE | 2017-05-26 23:27 | NUR ---
PRN BENADRYL RE-ASSESSMENT PATIENT IN BED WITH EYES CLOSED. RESPIRATION EVEN AND UNLABORED. SAFETY MEASURES IN PLACE. CALL LIGHT IN REACH. WILL CONTINUE TO MONITOR
[2017-05-27] VITALS: BP 135/72
--- NOTE | 2017-05-27 | NUR ---
CIWA DEFERRED PATIENT IN BED WITH EYES CLOSED. RESPIRATION EVEN AND UNLABORED. SAFETY MEASURES IN PLACE. CALL LIGHT IN REACH. WILL CONTINUE TO MONITOR
[2017-05-27 04:00] VITALS: BP 99/63
--- NOTE | 2017-05-27 04:00 | NUR ---
CIWA DEFERRED PATIENT IN BED WITH EYES CLOSED. RESPIRATION EVEN AND UNLABORED. SAFETY MEASURES IN PLACE. CALL LIGHT IN REACH. WILL CONTINUE TO MONITOR
[2017-05-27] MEDS: PANTOPRAZOLE SODIUM 40 MG TABLET.DR PO SCH (06:36)
--- NOTE | 2017-05-27 07:30 | NUR ---
START OF SHIFT Pt 51 y/o female admitted for medically supervised withdrawal from etoh. Pt received in room on bed with eyes closed resting, but easily arousable to name. Pt alert and oriented to name, place, and time. Perrla. Skin warm and moist to touch. Respirations even and unlabored. Bilateral hand tremors noted. Pt appears disheveled and unkempt. Clothes scattered throughout the room. Encouraged to maintain hygiene. It was reported that pt slept for 6 hours last night. Last ciwa=6 reported at 2100. pt is on a 5 day ativan taper and is on day 5. Bed on lowest position with side rails x2 up for safety. Call light within reach.
--- NOTE | 2017-05-27 07:42 | NUR ---
END OF SHIFT NOTE PATIENT SLEPT 6 HOURS. FLUID INTAKE 500 ML. VOIDED X 0. NO BM. CONTINUE ON ATIVAN TAPE, TOLERATED WELL AND NO ADVERSE REACTION. PATIENT WAS GIVEN PRN CATAPRES FOR BP- 166/89 , EFFECTIVE BP WENT DOWN TO 136/79. PRN TYLENOL AND BENADRYL GIVEN. SAFETY MEASURES IN PLACE. CALL LIGHT IN REACH. WILL CONTINUE TO MONITOR. LAST CIWA 6.
[2017-05-27 08:00] VITALS: BP 137/87
[2017-05-27] MEDS: MULTIVITAMINS,THERAPEUTIC TABLET PO SCH (08:47)
[2017-05-27] MEDS: METFORMIN HCL 500 MG TABLET PO SCH ×2 (08:47→17:12)
[2017-05-27] MEDS: THIAMINE HCL 100 MG TABLET PO SCH (08:47)
[2017-05-27] MEDS: GABAPENTIN 300 MG CAPSULE PO SCH ×2 (08:47→14:47)
[2017-05-27] MEDS: AMLODIPINE 5 MG TABLET PO SCH (08:47)
[2017-05-27] MEDS: FOLIC ACID 1 MG TABLET PO SCH (08:47)
[2017-05-27] MEDS: ESCITALOPRAM OXALATE 10 MG TABLET PO SCH (08:47)
[2017-05-27] MEDS ORDERED: LORAZEPAM 1 MG TABLET PO SCH (09:00)
[2017-05-27] MEDS: IBUPROFEN 600 MG TABLET PO PRN (11:06)
--- NOTE | 2017-05-27 11:16 | NUR ---
PRN Pt states has bilateral leg pain 5/10. Motrin po prn per MD order given and tolerated well.
--- NOTE | 2017-05-27 12:16 | NUR ---
PRN NOEMI' Pt states bilateral leg pain 3/10.
[2017-05-27 12:34] VITALS: BP 118/87
[2017-05-27] MEDS ORDERED: PANT40TA2 PO (15:31)
[2017-05-27] MEDS ORDERED: METF500T6 PO (15:31)
[2017-05-27] MEDS ORDERED: DIPH50CA37 PO (15:31)
[2017-05-27] MEDS ORDERED: AMLO5TAB2 PO (15:31)
[2017-05-27] MEDS ORDERED: DICY20TA28 PO (15:31)
[2017-05-27] MEDS ORDERED: ESCI10TA PO (15:31)
[2017-05-27] MEDS ORDERED: GABA-534 PO ×2 (15:31)
[2017-05-27] MEDS ORDERED: IBUP-1955 PO (15:31)
[2017-05-27 16:00] VITALS: BP 139/83
--- NOTE | 2017-05-27 18:34 | NUR ---
END OF SHIFT Pt 51 y/o female admitted for medically supervised withdrawal from etoh. Perrla. Pt alert and oriented to name, place, and time. Perrla. Skin warm and moist to touch. Respirations even and unlabored. Bilateral hand tremors noted. Pt appears disheveled and unkempt. Empty water bottles scattered throughout the room. Encouraged to maintain hygiene. Pt observed mostly isolative to room today. Pt was seen by MD today. Pt medication compliant and tolerated well. No ASE noted. Pt is on a 5 day ativan taper and is on day 5. Last ciwa=7@0800, 7@1200, and 6@1600. Bed on lowest position with side rails x2 up for safety. Call light within reach. Pt is scheduled to be discharged tomorrow.
--- NOTE | 2017-05-27 19:15 | NUR ---
Start of Shift Patient Received. Patient is noted in activities room participating in a group meeting. Per endorsement, Patient has completed a modified Ativan taper and is set for discharge tomorrow 05/28/17. She received PRN Motrin for increased pain with medication noted to be effective. Last noted CIWA 6. All needs attended to promptly. Will continue plan of care as ordered.
[2017-05-27 20:30] VITALS: BP 130/86
[2017-05-27] MEDS ORDERED: GABAPENTIN 300 MG CAPSULE PO SCH (21:00)
[2017-05-27] MEDS: diphenhydrAMINE 50 MG CAPSULE PO PRN (22:18)
--- NOTE | 2017-05-27 22:18 | NUR ---
PRN Medication Administration Patient is noted verbalizing inability of falling asleep. PRN Benadryl administered. Will continue to monitor.
--- NOTE | 2017-05-27 23:18 | NUR ---
PRN Medication Reassessment Patient is noted in bed sleeping. Breathing even and non labored. No signs of restlessness or discomfort noted. PRN Benadryl noted to be effective. Will continue to monitor.
--- NOTE | 2017-05-28 00:52 | NUR ---
Vitals Refused and CIWA Deferred 0000 vitals refused. CIWA deferred due to patient sleeping. Breathing even and non labored.Will continue to monitor. Addendum: 05/28/17 at 0054 by JASMINE CUNNINGHAM LVN Amended: Links added.
--- NOTE | 2017-05-28 04:09 | NUR ---
Vitals Refused and CIWA Deferred 0400 vitals refused. CIWA deferred due to patient sleeping. Breathing even and non labored.Will continue to monitor. Addendum: 05/28/17 at 0410 by JASMINE CUNNINGHAM LVN Amended: Links added.
[2017-05-28] MEDS: PANTOPRAZOLE SODIUM 40 MG TABLET.DR PO SCH (06:44)
--- NOTE | 2017-05-28 07:20 | NUR ---
End of Shift Patient is noted in bed awake, alert and verbally responsive. Breathing even and non labored. Patient has completed a modified Ativan taper and is set for discharge today 05/28/17. Patient received PRN Benadryl with medication noted to be effective. Patient noted to sleep a total of 7 hours. Last noted CIWA 5. All needs attended to promptly. Will endorse to continue plan of care as ordered.
--- NOTE | 2017-05-28 07:30 | NUR ---
START OF SHIFT Pt 51 y/o female admitted for medically supervised withdrawal from etoh. Pt received in room awake watching television and packing her belongings. Pt alert and oriented to name, place, and time. Perrla. Skin warm and dry to touch. Respirations even and unlabored. Clothes scattered throughout the room. Encouraged to maintain hygiene. It was reported that pt slept for 6 hours last night. Last ciwa=5 reported at 2100. Pt completed a 5 day ativan taper. Bed on lowest position with side rails x2 up for safety. Call light within reach. Pt is scheduled to be discharged today.
[2017-05-28 08:00] VITALS: BP 133/90
[2017-05-28] MEDS: MULTIVITAMINS,THERAPEUTIC TABLET PO SCH (08:25)
[2017-05-28 08:26] VITALS: BP 137/90
[2017-05-28] MEDS: ESCITALOPRAM OXALATE 10 MG TABLET PO SCH (08:26)
[2017-05-28] MEDS: GABAPENTIN 300 MG CAPSULE PO SCH (08:26)
[2017-05-28] MEDS: FOLIC ACID 1 MG TABLET PO SCH (08:26)
[2017-05-28] MEDS: THIAMINE HCL 100 MG TABLET PO SCH (08:26)
[2017-05-28] MEDS: METFORMIN HCL 500 MG TABLET PO SCH (08:26)
[2017-05-28] MEDS: AMLODIPINE 5 MG TABLET PO SCH (08:26)
--- NOTE | 2017-05-28 09:35 | NUR ---
DISCHARGE Pt 51 y/o female admitted for medically supervised withdrawal from etoh. Pt alert and oriented to name, place, and time. Perrla. Skin warm and dry to touch. Respirations even and unlabored. Pt excited about being discharged to [facility] via private transport. No belongings in cassette noted. Pt home medications, belongings in cabinet, prescriptions, and discharge papers packed in pt bag. Pt denies any SI/HI. No distress noted.
== END 2017-05-28 09:35 | disposition other institution (70) | DRG 895 ==
LOC: SRC 19:53
PROVIDERS: ADMIT Internal Medicine; ATTEND Internal Medicine
PROC: HZ2ZZZZ Detoxification Services for Substance Abuse Treatment (ICD-10-PCS; principal; 2017-05-21)
PROC: HZ31ZZZ Individual Counseling for Substance Abuse Treatment, Behavioral (ICD-10-PCS; 2017-05-24)
PROC: HZ41ZZZ Group Counseling for Substance Abuse Treatment, Behavioral (ICD-10-PCS; 2017-05-25)
DX: F10.232 Alcohol dependence with withdrawal with perceptual disturbance (principal); K70.10 Alcoholic hepatitis without ascites; I15.9 Secondary hypertension, unspecified; E11.65 Type 2 diabetes mellitus with hyperglycemia; E83.42 Hypomagnesemia; Y90.9 Presence of alcohol in blood, level not specified; Z91.89 Other specified personal risk factors, not elsewhere classified; Z90.49 Acquired absence of other specified parts of digestive tract; Z90.710 Acquired absence of both cervix and uterus; Z81.1 Family history of alcohol abuse and dependence; Z83.3 Family history of diabetes mellitus; Z82.49 Family history of ischemic heart disease and other diseases of the circulatory system; K21.9 Gastro-esophageal reflux disease without esophagitis; F17.210 Nicotine dependence, cigarettes, uncomplicated; F12.10 Cannabis abuse, uncomplicated; I25.2 Old myocardial infarction; F41.9 Anxiety disorder, unspecified; D72.829 Elevated white blood cell count, unspecified; F32.9 Major depressive disorder, single episode, unspecified
CPT/HCPCS: 36415; 70030-TC; 80307; 80349; 82746; 83735; 84100; 84443; 84703; 85025; 86592; 86705; 86803; 87340; 87806; A4663; C9113; G0480; J2405; J3490; Q0162; Q0163